=== PATIENT | female | born 1980 | race Caucasian/White ===

== ENCOUNTER → 2018-03-19 10:09 | Outpatient (CLI) | payer OTHER, SELFPAY ==
--- NOTE | 2018-03-19 | DI.MRI.S_ITS ---
PROCEDURE: MR LUMBAR SPINE WO CON INDICATIONS: LOW BACK PAIN TECHNIQUE: Noncontrast sagittal T1 spin echo and T2 fast echo, sagittal STIR, axial T1 and T2 fast spin echo through the lumbar spine. In cases with scoliosis, additional coronal T2 fast spin echo may be performed. COMPARISON: None. FINDINGS: Image quality: Excellent. Alignment and Curvature: There is normal bony alignment. Bone Marrow: Marrow is of normal overall signal. No acute vertebral body compression fractures. Spinal Cord: Conus medullaris terminates at the L1 level. Visualized cord demonstrates normal signal and size. Paraspinous Soft Tissues: No paravertebral masses. L1-L2: Normal appearance. L2-L3: Normal appearance. L3-L4: Loss of disc signal. Mild, diffuse disc bulge. No central stenosis. Mild bilateral neural foraminal narrowing secondary to disc disease. No neural impingement. L4-L5: Loss of disc signal and height. Mild, diffuse disc bulge. Mild bilateral facet hypertrophy. Mild central canal narrowing secondary to disc disease and facet hypertrophy. Mild bilateral neural foraminal narrowing secondary to disc and facet disease. Focal high intensity zone noted in the posterior annulus compatible with a fissure. L5-S1: Loss of disc signal and height. Mild, diffuse disc bulge. Mild bilateral facet hypertrophy. No central stenosis. Mild bilateral neural foraminal narrowing secondary to disc and facet disease. No neural impingement. Focal high intensity zone noted in the posterior annulus compatible with a fissure. IMPRESSION: 1. Moderate L4-L5 and L5-S1 degenerative disc disease. Mild L3-L4 degenerative disc disease. 2. Mild bilateral L4-L5 and L5-S1 facet arthropathy. 3. Mild L4-L5 central canal narrowing. 4. Mild bilateral L3-L4, L4-L5 and L5-S1 neural foraminal narrowing. 5. No neural impingement. 6. L4-L5 and L5-S1 disc annulus fissures. Dictated by: Gayla Flowers MD, PhD on 03/19/2018 at 16:36 Approved by: Gayla Flowers MD, PhD on 03/19/2018 at 16:42
== END ==
PROVIDERS: Visit Provider Physician Assistant Medical
DX: M48.061 Spinal stenosis, lumbar region without neurogenic claudication (principal); M51.36 Other intervertebral disc degeneration, lumbar region
CPT/HCPCS: 72148